=== PATIENT | male | born 2000 | race Caucasian/White ===

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

== ENCOUNTER 2022-10-08 14:49 | Emergency (ER) | payer OTHER ==
[~2022-10-08] VITALS: Ht 167.6 cm; Wt 98.5 kg
[~2022-10-08 14:49] MED LIST changes: +QC A650T3 PO
[2022-10-08] MEDS ORDERED: SUMAtriptan SUCCINATE 6MG/0.5ML VIAL SC ONE (16:50)
[2022-10-08] MEDS ORDERED: IBUP-1022 PO (18:10)
[2022-10-08] MEDS ORDERED: SUMA25TA3 PO (18:10)
[2022-10-08] MEDS ORDERED: AMOX875T2 PO (18:12)
[2022-10-08 18:33] VITALS: BP 133/72
== END 2022-10-08 18:39 | disposition home or self-care (01) ==
LOC: M ED 14:49
DX: G44.009 Cluster headache syndrome, unspecified, not intractable (principal); K08.89 Other specified disorders of teeth and supporting structures; F41.9 Anxiety disorder, unspecified; F32.A Depression, unspecified; F12.10 Cannabis abuse, uncomplicated; Z79.2 Long term (current) use of antibiotics; Z79.1 Long term (current) use of non-steroidal anti-inflammatories (NSAID); Z79.899 Other long term (current) drug therapy
CPT/HCPCS: 96372; 99283; J3030

== ENCOUNTER 2023-03-26 19:23 | Emergency (ER) | payer OTHER ==
[~2023-03-26] VITALS: Ht 177.8 cm; Wt 96.2 kg
[2023-03-26 19:23] VITALS: BP 144/81; TEMP 98.7; O2SAT 98
[~2023-03-26 19:23] MED LIST changes: +AMOX875T2 PO; +SUMA25TA3 PO
[2023-03-26] MEDS ORDERED: EXCETAB32 PO (19:30)
== END 2023-03-26 22:20 | disposition left against medical advice (07) ==
LOC: M ED 19:23
DX: Z53.21 Procedure and treatment not carried out due to patient leaving prior to being seen by health care provider (principal)